=== PATIENT | male | born 2005 | race Hispanic/Latino ===

== ENCOUNTER 2024-06-17 23:37 | Emergency (ER) | payer SELFPAY ==
[~2024-06-17] VITALS: Ht 170.2 cm; Wt 55.3 kg
[2024-06-18] LABS: RAPID GROUP A STREP negative (NEGATIVE)
[2024-06-18 00:06] LABS: SARS-CoV-2, RNA, NAAT NEGATIVE SARS CoV-2 (NEGATIVE)
[2024-06-18 00:11] LABS: INFLUENZA TYPE A Negative For Type A (NEGATIVE); INFLUENZA TYPE B Negative For Type B (NEGATIVE)
[2024-06-18] MEDS: IpraTROPium/alBUTERol SULFATE 3 ML SOLUTION IH ONE (00:35)
[2024-06-18 00:38] VITALS: PULSE 83; RESP 18
[2024-06-18] MEDS ORDERED: METH4TAB3 PO (01:02)
[2024-06-18] MEDS ORDERED: AZIT250T9 PO (01:02)
[2024-06-18] MEDS ORDERED: BENZ-39 PO (01:02)
[2024-06-18] MEDS: dexaMETHasone SOD PHOSPHATE 4 MG/ML 1ML VIAL IM ONE (01:04)
--- NOTE | 2024-06-18 01:04 | ERN ---
General Chief Complaint: Sore Throat Stated Complaint: C/O COUGH,SORE THROAT, HEADACHE, X 1 WK Time Seen by MD: 00:08 Time Seen by Midlevel: 00:08 Source: patient History of Present Illness Initial Comments Patient is a 18-year-old male with no significant past medical history presenting to the emergency department for evaluation of cough, sore throat, and nasal congestion that has been progressively worsening over the last week. The patient states his family member was sick with similar symptoms. Denies any other symptoms Allergies: Coded Allergies: No Known Allergies (Unverified Allergy, Unknown, 06/17/24) Past Medical History Past Medical History: No Pertinent History Past Surgical History: None ROS Dictation CONSTITUTIONAL: Negative except for HPI HEAD/FACE: Negative except for HPI EENT: Negative except for HPI RESPIRATORY: Negative except for HPI GASTROINTESTINAL/ABDOMINAL: Negative except for HPI GENITOURINARY: Negative except for HPI MUSCULOSKELETAL: Negative except for HPI INTEGUMENTARY: Negative except for HPI NEUROLOGICAL/PSYCH: Negative except for HPI HEMATOLOGIC/LYMPHATIC: Negative except for HPI All Systems Negative, Except as noted above. 13 point review of systems assessed and all negative except for above. Physical Exam Physical Exam Dictation Vital Signs reviewed General Appearance: Alert, oriented x 3, no acute distress, well developed, nourished. Head and Face: non-traumatic. Eyes: PERRL, pink conjunctivas, eyelid no trauma, anterior chamber with arcus senilis. Ears: Pinnas intact and no signs of trauma or erythema ear canals clear and no discharge TM no erythema Nose: No discharge, no bleeding. Oropharynx: Mouth normal, tongue pink, pharynx clear,no erythema, tonsils no exudates, no abscesses noted, mucous membrane moist Neck: Supple, non-tender, no thyromegaly, no masses, no JVD, no bruits Breast:Deferred Chest:No tenderness, no crepitus, no paradoxical movement, no retractions Lungs: Diffuse crackles to bilateral lung ricardo worse in the left lower lung field Heart: Regular rate, regular rhythm, no murmur, no gallops Vascular: no peripheral edema, Abdomen: Soft, positive bowel sounds, nondistended, no guarding, nontender, no rebound, no masses no hepatomegaly, no splenomegaly, no Craft's sign, no hernias. Rectal: Deferred Genital: Deferred Neurological: Normal speech, motor function intact, sensory function intact Musculoskeletal: Neck nontender, full range of motion, back nontender, full range of motion, Extremities: nontender, full range of motion Skin: Color pink, dry, no turgor, no rash, no lacerations, no abrasions, no contusions. Lymphatic: Deferred Results Laboratory and Microbiology Lab and Micro Result Laboratory Tests Test 06/17/24 23:42 Influenza Type A Antigen Negative For Type A Influenza Type B Antigen Negative For Type B SARS-CoV-2, RNA, NAAT NEGATIVE SARS CoV-2 Group A Streptococcus Rapid negative (NEGATIVE) Labs Reviewed?: Yes MDM MDM: Differential diagnosis: Pneumonia, acute bronchitis, pleural effusion There are no social concerns with this patient. Prescription drug management Prescriptions will include: Azithromycin and Medrol pack Medical management and examination interpretation discussions were had by me with other qualified healthcare professionals as indicated for the patient's care. ED Course Orders Procedure Category Date Status Time Covid Rna Naat LAB 06/17/24 Complete 23:39 Influenza Type A & B, LAB 06/17/24 Complete Rapid 23:39 Rapid (Group A Strep) LAB 06/17/24 Complete 23:39 Ipratropium/Albuterol PHA 06/18/24 Complete Neb (Duoneb) 00:30 Chest 1vw RAD 06/18/24 Taken 00:25 Current Medications Medications (Trade) Dose Ordered Sig/Osiel Route PRN Reason Start Time Stop Time Status Last Admin Dose Admin Albuterol (DUOneb) 1 UDVIAL ONCE ONCE IH 06/18/24 00:30 06/18/24 00:31 DC 06/18/24 00:35 Vital Signs Date Time Temp Pulse Resp B/P (MAP) Pulse Ox O2 Delivery O2 Flow Rate FiO2 06/18/24 00:38 83 18 06/17/24 23:42 98.8 86 20 128/86 99 Room Air DX & DISP Disposition: Discharge Departure Impression: Primary Impression: Acute bronchitis Condition: Stable Scripts Benzonatate (Tessalon Perles) 100 Mg Cap 100 MG PO TID for cough, #30 CAP 0 Refills Prov: HELEN MARTIN 06/18/24 Methylprednisolone (Medrol) 4 Mg Tab.ds.pk 1 TAB PO AD for 6 Days, #21 TAB 0 Refills 6 on day 1 then reduce by one tablet daily until gone Prov: HELEN MARTIN 06/18/24 Azithromycin (Azithromycin) 250 Mg Tablet 1 TAB PO AD for 5 Days, #6 TAB 0 Refills 2 the first day followed by 1 for days 2-5 Prov: HELEN MARTIN 06/18/24 Referrals: SELF,REFERRAL (PCP) Time of Disposition: 01:01 I have reviewed the case, and I agree with, Diagnosis and Plan I performed the substantive portion of the visit. I have reviewed and personally made and approve the management plan that is documented in the note by myself or the TIMOTHY. I acknowledge for responsibility for the patient's man agement plan. HELEN MARTIN Jun 18, 2024 01:04
[2024-06-18] MEDS: cefTRIAXone 1G VIAL IM ONE (01:05)
[2024-06-18 01:15] VITALS: BP 124/75; PULSE 97; RESP 18; TEMP 98.5; O2SAT 99
--- NOTE | 2024-06-18 01:57 | HMCIMG ---
CHEST 1VW HISTORY: Pneumonia COMPARISON: None FINDINGS: A frontal projection of the chest was obtained. No acute pulmonary infiltrates is seen. The heart is normal in size. Prominent interstitial markings are seen. No evidence of aortic calcification is seen. IMPRESSION: 1. No acute pulmonary infiltrate is seen.
== END 2024-06-18 01:18 | disposition home or self-care (01) ==
LOC: EDH 23:37
DX: J20.9 Acute bronchitis, unspecified (principal); Z20.822 Contact with and (suspected) exposure to COVID-19
CPT/HCPCS: 99284; 87635; 87880; 87804 ×2; 71045; 96372 ×2; 94640; J1100; J0696